=== PATIENT | female | born 1950 | race Caucasian/White ===

== ENCOUNTER → 2021-12-10 | Outpatient (CLI) | payer MEDICARE ==
[~2021-12-10] MED LIST: CELE1CAP7 PO; LEVO500T4 PO; LIDOCAINE 1% MDV 20ML VIAL As Ordered ONE; LISI10TA22 PO; MIDAZOLAM INJ 2MG/2ML VIAL (J2250 PER 1MG) As Ordered ONE; NS 1,000 ML IV SCH; OMEP40CA4 PO; ONDA8TAB8 PO; PRAM0.754 PO; PROC5TAB57 PO; VALA500T5 PO; ceFAZolin 2 GM/D5W 50 ML IV BAG (J0690 PER 500MG) As Ordered ONE; ceFAZolin SOD 2 GM in IV 1 EA IV ONE; diphenhydrAMINE 50MG/ML VIAL (J1200) As Ordered ONE; fentaNYL 100 MCG/2 ML INJECTION As Ordered ONE
[2021-12-10 10:55] VITALS: BP 160/73
== END ==
LOC: M IRPRO 06:10
PROVIDERS: ATTEND Nurse Practitioner Adult Health
DX: D61.818 Other pancytopenia (principal); C88.0 Waldenstrom macroglobulinemia
CPT/HCPCS: 36561; 99152; 99153; C1769; C1788; C1894; J0690; J1200; J1642; J1644; J2250; J3010